=== PATIENT | male | born 1990 | race African-American/Black ===

== ENCOUNTER 2017-10-29 17:05 | Emergency (ER) | payer SELFPAY ==
[2017-10-29 17:17] VITALS: BP 140/63; PULSE 80; RESP 18; TEMP 98.1; O2SAT 100
--- NOTE | 2017-10-29 20:22 | PD ---
HPI Chief Complaint: Skin Problem Time Seen by Provider: 17:29 Travel History International Travel<30 days: No Contact w/Intl Traveler<30days: No Traveled to known affect area: No History of Present Illness HPI 27-year-old male presents to ED for evaluation of rash between his third, fourth , and fifth toes. Started about a week ago. He has been cleaning without relief in symptoms. States it is occasionally itchy. Denies history of the same. Review of Systems Except as stated in HPI: all other systems reviewed are Neg Physical Exam Narrative GENERAL: Well-nourished, well-developed male in no acute distress. Afebrile. Ambulatory. SKIN: Focused skin assessment warm/dry. Slightly erythematous erosions and scales with fissures and cracking between the third and fourth and fourth and fifth toes. Nonbleeding. No impetiginization. HEAD: Normocephalic. EYES: No scleral icterus. No injection or drainage. NECK: Supple, trachea midline. No JVD or lymphadenopathy. CARDIOVASCULAR: Regular rate and rhythm without murmurs, gallops, or rubs. RESPIRATORY: Breath sounds equal bilaterally. No accessory muscle use. Data Data Last Documented VS Vital Signs Date Time Temp Pulse Resp B/P (MAP) Pulse Ox O2 Delivery O2 Flow Rate FiO2 18 17:17 98.1 80 18 140/63 (88) 100 MDM Medical Screen Exam Complete: Yes Emergency Medical Condition: No Differential Diagnosis Tinea pedis Narrative Course 27-year-old male presents for itchy rash between his toes for the past week. Physical exam reveals slightly erythematous erosions and scales with fissures and cracking between the third and fourth and fourth and fifth toes. Nonbleeding. No impetiginization. This is tinea pedis. Patient was told to use [id number] athlete's foot cream and follow-up with a primary care physician or return for worsening symptoms. There are no urgent or emergent medical conditions at this time. A medical screening exam was performed: At the time of evaluation the presenting medical condition was determined not to be of an emergent nature. The patient was given the option of receiving additional care, but declined. Patient was given options for additional community resources from which to obtain care. The Patient Has Been advised to seek medical attention for their presenting complaint. The patient has been advised to return to the ER at any time if an emergent condition develops. Primary Impression: Encounter for medical screening examination Disposition: 01 DISCHARGE HOME Condition: Stable Makenna Celaya Oct 29, 2017 20:22
== END 2017-10-29 17:43 | disposition left against medical advice (07) ==
LOC: NEPK 17:05
DX: B35.3 Tinea pedis (principal)
CPT/HCPCS: 99281

== ENCOUNTER 2017-12-21 02:38 | Emergency (ER) | payer OTHER ==
[~2017-12-21] VITALS: Ht 198.1 cm; Wt 96.0 kg
[2017-12-21 02:44] VITALS: BP 133/71; PULSE 74; RESP 18; TEMP 98; O2SAT 99
[2017-12-21] MEDS ORDERED: KETOROLAC TROMETHAMINE 60 MG/2 ML (IM) VIAL IM ONE (04:15)
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
[2017-12-21] MEDS ORDERED: IBUP-232 PO (05:55)
[2017-12-21] MEDS ORDERED: TRAM50TA PO (06:04)
[2017-12-21] MEDS ORDERED: DIAZ5 PO (06:04)
[2017-12-21 06:10] VITALS: BP 114/59; PULSE 70; RESP 16; O2SAT 100
== END 2017-12-21 06:14 | disposition home or self-care (01) ==
LOC: NEPE 02:38
DX: M54.2 Cervicalgia (principal); M25.522 Pain in left elbow; M25.552 Pain in left hip; M79.652 Pain in left thigh; S60.512A Abrasion of left hand, initial encounter; Z72.0 Tobacco use; V89.2XXA Person injured in unspecified motor-vehicle accident, traffic, initial encounter; Y92.410 Unspecified street and highway as the place of occurrence of the external cause
CPT/HCPCS: 71046; 72050; 73080; 73552; 74176; 96372; 99284; J1885